=== PATIENT | male | born 1960 | race Hispanic/Latino ===

== ENCOUNTER → 2017-11-03 | Day surgery (SDC) | payer BC ==
[2017-10-27 10:30] LABS: BASOPHILS % 0.3 % (0.0-1.0); EOSINOPHILS # (AUTO) 0.1 (0.0-0.4); EOSINOPHILS % 1.8 % (0.0-6.0); HEMATOCRIT 46.8 % (38.2-49.6); HEMOGLOBIN 16.3 g/dL (14.0-18.0); LYMPHOCYTES # (AUTO) 2.4 (1.0-3.2); LYMPHOCYTES % 38.8 % (18.0-39.1); MEAN CORPUSCULAR HEMOGLOBIN 30.9 pg (28-32); MEAN CORPUSCULAR HGB CONC 34.8 g/dL (31-35); MEAN CORPUSCULAR VOLUME 88.6 fL (81-99); MONOCYTES # (AUTO) 0.4 (0.2-0.8); NEUTROPHILS # (AUTO) 3.2 (2.1-6.9); NEUTROPHILS % 51.9 % (38.7-80.0); PLATELET COUNT 128 x10e3/uL (140-360); RED BLOOD COUNT 5.28 x10e6/uL (4.3-5.7); RED CELL DISTRIBUTION WIDTH 12.5 % (11.7-14.4)
[2017-10-27 10:49] LABS: ANION GAP 14.8 mmol/L (8-16); BLOOD UREA NITROGEN 13 mg/dL (7-26); BUN/CREATININE RATIO 14 (6-25); CARBON DIOXIDE 29 mmol/L (22-29); CHLORIDE 109 mmol/L (98-107); CREATININE, SERUM 0.93 mg/dL (0.72-1.25); EST GLOMERULAR FILTRATION RATE > 60 ML/MIN (60-); GLUCOSE 103 mg/dL (74-118); POTASSIUM 5.8 mmol/L (3.5-5.1); SODIUM 147 mmol/L (136-145)
[~2017-11-03] MED LIST: BUPIVACAINE HCL 0.5% INJ 30 ML VIAL INJ ONE; CEFAZOLIN SOD 1 GM VIAL ONE; CEFAZOLIN SOD 1 GM/NS 50ML 50 ML IV ONE; CITALOPRAM HBR20 MG PO; DEXAMETHASONE SOD PHOS INJ 4 MG/ML VIAL ONE; FENTANYL CITRATE/PF 100MCG/2 ML INJ ONE; LIDOCAINE HCL 1% LOCAL INJ 20 ML VIAL ONE; LIDOCAINE HCL 2% LOCAL INJ 5 ML SDV VIAL INJ ONE; MIDAZOLAM HCL 2 MG/2 ML VIAL ONE; ONDANSETRON HCL INJ 2 MG/ML VIAL ONE; PROPOFOL IV EMULSION 10 MG/ML 20 ML VIAL ONE; SEVOFLURANE INHAL SOLN 250 ML PEN BTL ONE; Z.0.CITALOPRAM HBR10 PO; [UNRECOGNIZED DRUG - OTHER] PO
--- NOTE | 2017-11-03 09:54 | Operative Report ---
DATE OF PROCEDURE: November 03, 2017 PREOPERATIVE DIAGNOSIS: Left inguinal hernia. POSTOPERATIVE DIAGNOSIS: Left inguinal hernia. PROCEDURE PERFORMED: Repair of left inguinal hernia with Ultra Pro hernia system, oval type. ANESTHESIA: General. ESTIMATED BLOOD LOSS: Minimal. DRAINS: None. COMPLICATIONS: None. INDICATIONS AND FINDINGS: The patient is a 56-year-old male who had been complaining of groin pain since September. He had undergone repair of a right inguinal hernia, and now is planning his staged repair with the left side. INTRAOPERATIVE FINDINGS: The patient had a direct defect with a protrusion of the properitoneal fat through a saccular type of defect, which was reduced. Then the Ultra Pro hernia system oval type was deployed. There was no evidence of indirect hernia sac. There was no evidence of femoral herniation. DESCRIPTION OF PROCEDURE: With the patient lying on the operating table in the supine position and after administration of general anesthesia, he was prepped and draped for repair of left inguinal hernia. Pre-emptive anesthesia was given with 0 25% Marcaine with epinephrine as an ilioinguinal nerve block and incisional nerve block. A transverse groin incision was made and deepened through the skin, subcutaneous tissue and Amber fascia until the external oblique aponeurosis was identified. This was incised along the course of its fibers transecting the external inguinal ring. Mid and lateral leads were developed. The cord was mobilized at the level of the pubic tubercle and retracted away from the operative field by a [place] drain. The cremaster was incised. An indirect hernia sac was searched for and none was found. The defect was then reduced. The transversalis fascia was incised. Then the Ultra Pro hernia system oval type was deployed with the underlay part of the mesh over the direct space and the overlay part of the mesh over the inguinal canal floor. A slit was made to accommodate the cord, and then the mesh was secured to local tissues using a series of interrupted 2 Ethibond sutures. The wound was irrigated. Bleeding points were cauterized. Then the wound was closed in layers using 2-0 Vicryl for the external oblique aponeurosis, 2-0 catgut for the soft tissues and then the skin was closed using king. Sterile dressing was applied. The patient tolerated the procedure well, and taken to the recovery room in stable condition. Job#: [id number] LUCIUS
== END | disposition home or self-care (01) ==
LOC: OR 06:13
PROVIDERS: ATTEND Surgery
DX: K40.90 Unilateral inguinal hernia, without obstruction or gangrene, not specified as recurrent (principal); K21.9 Gastro-esophageal reflux disease without esophagitis; F41.9 Anxiety disorder, unspecified; Z01.812 Encounter for preprocedural laboratory examination; Z87.891 Personal history of nicotine dependence
CPT/HCPCS: 36415 ×2; 49505; 80048; 84132; 85025; C1781; J0690; J1100; J2001; J2250; J2405

== ENCOUNTER → 2018-07-03 | Outpatient (CLI) | payer BC ==
[~2018-07-03] MED LIST changes: -BUPIVACAINE HCL 0.5% INJ 30 ML VIAL INJ ONE; -CEFAZOLIN SOD 1 GM VIAL ONE; -CEFAZOLIN SOD 1 GM/NS 50ML 50 ML IV ONE; -DEXAMETHASONE SOD PHOS INJ 4 MG/ML VIAL ONE; -FENTANYL CITRATE/PF 100MCG/2 ML INJ ONE; -LIDOCAINE HCL 1% LOCAL INJ 20 ML VIAL ONE; -LIDOCAINE HCL 2% LOCAL INJ 5 ML SDV VIAL INJ ONE; -MIDAZOLAM HCL 2 MG/2 ML VIAL ONE; -ONDANSETRON HCL INJ 2 MG/ML VIAL ONE; -PROPOFOL IV EMULSION 10 MG/ML 20 ML VIAL ONE; -SEVOFLURANE INHAL SOLN 250 ML PEN BTL ONE
--- NOTE | 2018-07-03 18:10 | Diagnostic Imaging Report ---
EXAMINATION: MRI of the brain without contrast. HISTORY: Worsening tremors for the last 2 years, headaches COMPARISON: None. TECHNIQUE: Sagittal T2; axial DWI, T2, FLAIR, T1-IR, T2 gradient echo; coronal FLAIR. IMAGE QUALITY: Adequate. FINDINGS: Parenchyma: 1. No abnormal signal intensity , particularly no abnormal signal or disproportionate atrophy of the deep ribera nuclei, brainstem or cerebellum., 2. No mass, hemorrhage, acute or chronic infarcts. Skull: Unremarkable. Vessels: Expected flow voids present in the major arteries and dural sinuses. Extra-axial spaces: No abnormal signal intensity or mass effect. Incidentally noted small benign retrocerebellar arachnoid cyst without mass effect. Brain volume: Within normal limits for age. Ventricles: No hydrocephalus or displacement. Foramen magnum: Unremarkable. Sella: Unremarkable. Paranasal / mastoid sinuses: No significant inflammatory disease. IMPRESSION: Normal brain MRI, particularly no abnormalities in the deep ribera nuclei or posterior fossa structures. Signed by: Dr. Yara Alfred M.D. on 07/03/2018 6:07 PM
== END ==
LOC: MRI 16:21
PROVIDERS: ATTEND Internal Medicine
DX: G25.2 Other specified forms of tremor (principal)
CPT/HCPCS: 70551